=== PATIENT | female | born 1975 | race Caucasian/White ===

== ENCOUNTER → 2017-02-02 | Outpatient (CLI) | payer OTHER ==
[~2017-02-02] MED LIST: KLONOPIN1 MG PO; KLONOPIN2 MG PO; METHADONE PO; METHADOSE PO; MIRALAX17 GM PO; MULTI-DAY1 TAB PO; POTASSIUM99 M1 PO; VITAMIN B 12 INJECT
--- NOTE | ~2017-02-02 | MR31 ---
[facility] A Service of [facility] RADIOLOGY TEXT RESULTS PATIENT: CHRISTIANO DAVIDSON LOCATION: [facility] : 71 UNIT #: [id number] AGE: [address]: Juan Garcia II, MD SEX: F ORDER DR: [id number] [address] [address] [id number] O MR#: [id number] Acc #: [id number] NAME: CHRISTIANO DAVIDSON. : 1975 SEX: F STUDY DATE/TIME: 02/02/2017 11:40 UNIT: [facility] ROOM: STUDY DESCRIPTION: MR Cervical WWo Contrast Attending Physician: Juan Garcia II., M.D. Referring Physician: Juan Garcia II., M.D. Ordering Physician: Juan Garcia II., M.D. Primary Care Physician: Kayli Not Listed MRI CENTER REPORT This report is preliminary unless electronic signature is present. EXAM MRI of the cervical spine with and without contrast dated 02/02/2017. COMPARISON MRI brain with and without contrast dated 02/02/2017. No prior cervical spine studies. HISTORY Patient was diagnosed with multiple sclerosis, CIDP 10 years ago. Headaches and ataxia is present, more this year. FINDINGS Multisequence, multiplanar imaging of the cervical spine was obtained with and without contrast. 12 mL of MultiHance was administered intravenously. Motion artifact limits evaluation. Multiple sequences are being repeated. There is loss of normal cervical curvature. Vertebral body heights are preserved. No obvious acute fracture or subluxation is seen. There is a fatty signal area in T2 anterior vertebral body, benign-appearing. No associated pathological fracture or extraosseous soft tissue components. A smaller similar lesion is also noted at C7 vertebral body. Degenerative disc signal loss is noted at multiple levels of the cervical spine without any focal significant disc herniation, canal stenosis, or neural foraminal narrowing. Cord does not demonstrate any well-defined lesions or enhancement. IMPRESSION 1. Motion artifact limits evaluation. 2. Degenerative disc disease is seen in the cervical and slightly more prominent in the thoracic levels. 3. No significant focal disc herniation, canal stenosis, or neural foraminal narrowing in the C-spine. 4. Cord does not demonstrate any significant abnormality after giving STS. [facility] A Service of [facility] & [facility] RADIOLOGY TEXT RESULTS PATIENT: CHRISTIANO DAVIDSON LOCATION: [facility] : 71 UNIT #: [id number] AGE: [address]: Juan Garcia II, MD SEX: F ORDER DR: allowances to motion artifact. 5. No enhancing cord lesions. Dictated by... Eh Martinez M.D. THIS IS AN ELECTRONICALLY VERIFIED REPORT Eh Martinez M.D. at 02/06/2017 11:39 AM CPR/tmw TD: 02/03/2017 07:12 JOB #: [id number] MRI CENTER REPORT Page 1 of 1
--- NOTE | ~2017-02-02 | MR17 ---
[facility] A Service of [facility] RADIOLOGY TEXT RESULTS PATIENT: CHRISTIANO DAVIDSON LOCATION: [facility] : 71 UNIT #: [id number] AGE: [address]: Juan Garcia II, MD SEX: F ORDER DR: [id number] [address] [address] [id number] O MR#: [id number] Acc #: [id number] NAME: CHRISTIANO DAVIDSON. : 1975 SEX: F STUDY DATE/TIME: 02/02/2017 11:17 UNIT: [facility] ROOM: STUDY DESCRIPTION: MR Brain WWo Contrast Attending Physician: Juan Garcia II., M.D. Referring Physician: Juan Garcia II., M.D. Ordering Physician: Juan Garcia II., M.D. Primary Care Physician: Generic Doctor Not In System MRI CENTER REPORT This report is preliminary unless electronic signature is present. EXAM MRI of the brain with and without contrast, dated 02/02/2017. COMPARISON None. HISTORY Diagnosed with multiple sclerosis/CIDP 10 years ago. Headaches, ataxia for more than a year. FINDINGS Multisequence, multiplanar imaging of the brain was obtained with and without contrast. 12 mL of MultiHance was administered intravenously. Age appropriate parenchymal volume is seen. There is no obvious white matter lesions identified in the current study. Tiny enhancing vessel is noted in the left frontal lobe along the convexity suspicious for a tiny developmental venous anomaly, benign. No other co-existing vascular anomalies or hemorrhage is seen. Postcontrast sequences do not demonstrate any other solid mass. No acute stroke, hydrocephalus, midline shift of hemorrhage is seen. Thick slices through the pituitary gland, pineal region and upper cervical spine are grossly unremarkable. IMPRESSION 1. There is no demonstrable significant abnormality including white matter lesions on the current study. There is a history of diagnosis of multiple sclerosis/CIDP. No imaging characteristics are noted in relation to it. There are no prior studies available for comparison either. 2. 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 [facility] A Service of [facility] RADIOLOGY TEXT RESULTS PATIENT: CHRISTIANO DAVIDSON LOCATION: [facility] : 71 UNIT #: [id number] AGE: [address]: Juan Garcia II, MD SEX: F ORDER DR: Dictated by... Eh Martinez M.D. THIS IS AN ELECTRONICALLY VERIFIED REPORT Eh Martinez M.D. at 02/06/2017 11:39 AM CPR/jt TD: 02/02/2017 22:10 JOB #: [id number] MRI CENTER REPORT Page 1 of 1
== END | disposition home or self-care (01) ==
LOC: SMRI 02-01 08:45
DX: G35 Multiple sclerosis (principal); M50.30 Other cervical disc degeneration, unspecified cervical region; M51.34 Other intervertebral disc degeneration, thoracic region
CPT/HCPCS: 70553; 72156; A9581

== ENCOUNTER 2017-02-07 10:56 | Emergency (ER) | payer OTHER | END 2017-02-07 12:09 | disposition left against medical advice (07) | LOC: SED 10:56 | DX: Z76.5 Malingerer [conscious simulation] (principal); F19.90 Other psychoactive substance use, unspecified, uncomplicated; K21.9 Gastro-esophageal reflux disease without esophagitis; G62.9 Polyneuropathy, unspecified; Z90.710 Acquired absence of both cervix and uterus; F17.200 Nicotine dependence, unspecified, uncomplicated | CPT/HCPCS: 99283 ==